=== PATIENT | male | born 1990 | race American Indian/Alaskan Native ===

== ENCOUNTER 2019-04-12 15:55 | Emergency (ER) | payer SELFPAY ==
--- NOTE | 2019-04-12 16:05 | Event Note ---
ED Screening Note ED Screening Note: HIV miahvojesusita; dx 2017 here for discharge 1 male sexual partner has had chlamydia in the past and he thinks its the same This initial assessment/diagnostic orders/clinical plan/treatment(s) is/are subject to change based on patients health status, clinical progression and re- assessment by fellow clinical providers in the ED. Further treatment and workup at subsequent clinical providers discretion. Patient/guardian urged not to elope from the ED as their condition may be serious if not clinically assessed and managed. Initial orders include: u/a; gc..higher risk HIV pt
[2019-04-12 16:39] LABS: Bilirubin,Urine NEG (Negative); Blood,Urine NEG (Negative); Color,Urine Yellow (Yellow); Mucus,Urine FEW /HPF; Protein,Urine <15 mg/dL mg/dL (Negative)
[2019-04-12] MEDS ORDERED: XYLOCAINE 1% MPF 5 mL INFILTRATI ONE (16:50)
[2019-04-12] MEDS ORDERED: ZITHROMAX PO STA (16:50)
[2019-04-12] MEDS ORDERED: ROCEPHIN IM STA (16:50)
--- NOTE | 2019-04-12 16:51 | Emergency Department Report ---
ED Male HPI - General Chief complaint: Urogenital-Male Stated complaint: STD TREATMENT Time Seen by Provider: 04/12/19 16:03 Source: patient Mode of arrival: Ambulatory Limitations: No Limitations - History of Present Illness Initial comments: 29-year-old HIV positive male presented to emergency department complaining of dysuria and penile drainage for the last couple days. Reports no fever, chills, sweats. Has a history of having had Chlamydia and gonorrhea in the past and states this feels similar requests treatment. MD Complaint: penile discharge, dysuria -: Gradual, Sudden, days(s) (2) Radiation: none Severity: mild Quality: burning Consistency: constant Improves with: none Worsens with: urination discharge, blood in urine, dysuria. denies: swelling, mass, nausea/vomiting, incontinence - Related Data Allergies Allergy/AdvReac Type Severity Reaction Status Date / Time No Known Allergies Allergy Unverified 04/12/19 15:58 ED Review of Systems ROS: Stated complaint: STD TREATMENT Other details as noted in HPI Comment: All other systems reviewed and negative ED Past Medical Hx - Past Medical History Previous Medical History?: No - Surgical History Past Surgical History?: No - Social History Smoking Status: Never Smoker Substance Use Type: None ED Physical Exam - General Limitations: No Limitations General appearance: alert, in no apparent distress - Head Head exam: Present: atraumatic, normocephalic - Eye Eye exam: Present: normal appearance - ENT ENT exam: Present: mucous membranes moist - Neck Neck exam: Present: normal inspection - Respiratory Respiratory exam: Present: normal lung sounds bilaterally. Absent: respiratory distress - Cardiovascular Cardiovascular Exam: Present: regular rate, normal rhythm. Absent: systolic murmur, diastolic murmur, rubs, gallop - GI/Abdominal GI/Abdominal exam: Present: soft, normal bowel sounds - Rectal Rectal exam: Present: deferred - Extremities Exam Extremities exam: Present: normal inspection - Back Exam Back exam: Present: normal inspection - Neurological Exam Neurological exam: Present: alert, oriented X3 - Psychiatric Psychiatric exam: Present: normal affect, normal mood - Skin Skin exam: Present: warm, dry, intact, normal color. Absent: rash ED Course Vital Signs 04/12/19 16:02 Temperature 98.4 F Pulse Rate 91 H Respiratory 20 Rate Blood Pressure 161/105 O2 Sat by Pulse 97 Oximetry Critical care attestation.: If time is entered above; I have spent that time in minutes in the direct care of this critically ill patient, excluding procedure time. ED Disposition Clinical Impression: Penile discharge, Possible exposure to STD Disposition: DC-01 TO HOME OR SELFCARE Is pt being admited?: No Does the pt Need Aspirin: No Condition: Stable Instructions: Safe Sex (ED), Sexually Transmitted Diseases (ED), Chlamydia Infection (ED) Referrals: AYSE ASIF MD [Primary Care Provider] - 3-5 Days
[2019-04-12 17:22] VITALS: BP 154/96
== END 2019-04-12 17:21 | disposition home or self-care (01) ==
LOC: ED 15:55
DX: R36.9 Urethral discharge, unspecified (principal)
CPT/HCPCS: 81001; 87086; 87591; 96372; 99283; J0696